=== PATIENT | male | born 1975 | race Caucasian/White ===

== ENCOUNTER → 2020-10-20 | Outpatient (CLI) | payer BC ==
[~2020-10-20] MED LIST: DEXL60CA5 PO; FAMO40TA6 PO; HYDR-34 PO
--- NOTE | 2020-10-20 09:42 | Diagnostic Imaging Report ---
PROCEDURE: US Gallbladder. TECHNIQUE: Multiple real-time grayscale images were obtained over the right upper quadrant in various projections. INDICATION: Right upper quadrant pain. The liver is normal in size at 16 cm. There is generalized increased echogenicity throughout the liver consistent with hepatic steatosis. The portal vein is patent and shows normal direction of flow. The gallbladder is without stones or sludge. No wall thickening or pericholecystic fluid is identified. No biliary ductal dilatation is identified. The pancreas was poorly visualized due to overlying bowel gas. The proximal and mid abdominal aorta are obscured by bowel gas. Distal abdominal aorta is normal in caliber. The right kidney demonstrates normal cortical thickness and echogenicity. No calculi or hydronephrosis is identified. There is no ascites. IMPRESSION: 1. Mild hepatic steatosis. 2. No evidence of cholelithiasis or acute cholecystitis. Dictated by: Dictated on workstation # [id number]
== END ==
LOC: RAD 08:30
PROVIDERS: ATTEND Internal Medicine
DX: K76.0 Fatty (change of) liver, not elsewhere classified (principal)
CPT/HCPCS: 76705

== ENCOUNTER 2020-11-09 05:33 | Outpatient (RCR) | payer BC ==
[~2020-11-09] VITALS: Ht 172.7 cm; Wt 99.5 kg
[~2020-11-09 05:33] MED LIST changes: +PANT40TA52 PO; +ROSU10TA28 PO; +SUCR1TAB PO
== END 2020-11-09 11:09 | disposition home or self-care (01) ==
LOC: PREOP 05:33
PROVIDERS: ATTEND Surgery
DX: Z01.812 Encounter for preprocedural laboratory examination (principal); K21.9 Gastro-esophageal reflux disease without esophagitis; Z20.828 Contact with and (suspected) exposure to other viral communicable diseases
CPT/HCPCS: 87635

== ENCOUNTER 2020-11-14 11:26 | Day surgery (SDC) | payer BC ==
[2020-11-14] VITALS (7 sets, daily range): BP systolic 95–132; BP diastolic 57–93
[~2020-11-14] VITALS: Ht 172 cm; Wt 99.0 kg
[2020-11-14] MEDS ORDERED: LACTATED RINGERS 1,000 ML IV ONE (11:28)
[2020-11-14] MEDS ORDERED: LACTATED RINGERS 1,000 ML IV STA (11:28)
[2020-11-14] MEDS ORDERED: HURRICAINE EXT TUBE (BENZOCAINE) XX PRN (11:30)
[2020-11-14] MEDS ORDERED: MIDAZOLAM 2 MG/2 ML (VERSED) VIAL ONE (12:00)
[2020-11-14] MEDS ORDERED: PROPOFOL INJECTION 50 ML IV ONE (12:00)
[2020-11-14] MEDS ORDERED: HURRICAINE EXT TUBE (BENZOCAINE) ONE (12:07)
--- NOTE | 2020-11-14 12:10 | Progress Note-Pre Operative ---
Pre-Operative Progress Note H&P Reviewed The H&P was reviewed, patient examined and no changes noted. Date Seen by Provider: Nov 14, 2020 Time Seen by Provider: 12:10 Date H&P Reviewed: Nov 14, 2020 Time H&P Reviewed: 12:10 Pre-Operative Diagnosis: gerd TELMA JAMES DO Nov 14, 2020 12:10
--- NOTE | 2020-11-14 12:19 | Progress Note-Post Operative ---
Post-Operative Progess Note Surgeon (s)/Convertible Power Shovel Operator (s) Surgeon TELMA JAMES DO Convertible Power Shovel Operator: na Pre-Operative Diagnosis gerd Post-Operative Diagnosis same Procedure & Operative Findings Date of Procedure 11/14/20 Procedure Performed/Findings egd c biopsies Anesthesia Type per warp tying machine tender Estimated Blood Loss Estimated blood loss (mL): none Specimens/Packing Specimens Removed antrum, ge TELMA JAMES DO Nov 14, 2020 12:19
--- NOTE | 2020-11-14 12:20 | Discharge Inst-Simple/Standard ---
Discharge Inst-Standard Discharge Medications New, Converted or Re-Newed RX: RX on Chart Patient Instructions/Follow Up Plan of Care/Instructions/FU: 2 weeks Marvin Activity as Tolerated: Yes Discharge Diet: Regular Diet TELMA JAMES DO Nov 14, 2020 12:20
--- NOTE | 2020-11-14 13:22 | Anesthesia-General Post-Op ---
MAC Patient Condition Mental Status/LOC: Same as Preop Cardiovascular: Satisfactory Nausea/Vomiting: Absent Respiratory: Satisfactory Pain: Controlled Complications: Absent Post Op Complications Complications None Follow Up Care/Instructions Patient Instructions None needed. Anesthesiology Discharge Order Discharge Order Patient is doing well, no complaints, stable vital signs, no apparent adverse anesthesia problems. No complications reported per nursing. LILIAM BRANDON CRNA Nov 14, 2020 13:22
--- NOTE | 2020-11-14 13:27 | OPERATIVE REPORT ---
DATE OF SERVICE: 11/14/2020 PREOPERATIVE DIAGNOSIS: Gastroesophageal reflux disease. POSTOPERATIVE DIAGNOSIS: Gastroesophageal reflux disease. PROCEDURE: EGD with biopsies. SURGEON: Telma Wong DO ANESTHESIA: Per GAME TECHNICIAN. ESTIMATED BLOOD LOSS: None. COMPLICATIONS: None. INDICATIONS: The patient is a 45-year-old male with GERD symptoms, recommended EGD for further evaluation. He understands risks and benefits of procedure and wished to proceed with procedure. Consent was signed in the chart. DESCRIPTION OF PROCEDURE: The patient was taken to endoscopy suite, placed in left lateral recumbent position. Timeout was performed. Scope was inserted in mouth, down the esophagus, stomach and into the duodenum without difficulty. There were no polyps, masses or ulcerations within the duodenum. Scope was slowly retracted back into the stomach where it was further insufflated. No polyps, masses or ulcerations. Biopsy of the antrum was obtained. Scope was retroflexed noting no other pathology. Scope was returned to its normal position, slowly withdrawn to distal esophagus. Biopsy of the GE junction was obtained. There were no polyps, masses or ulcerations. Some slight erythematous changes. Scope was then continuously retracted back until completely removed. The patient tolerated procedure well without any complications, taken to recovery room in stable condition. RECOMMENDATIONS: The patient will continue on current medications. We will follow up on biopsies in 2 to 3 weeks. Further recommendations pending biopsy results and symptoms. Job ID: [id number] DocumentID: [id number] Dictated Date: 11/14/2020 12:22:08 Mechanical Design Engineer Products Date: 11/14/2020 13:26:38 Dictated By: TELMA WONG DO
== END 2020-11-14 13:09 | disposition home or self-care (01) ==
LOC: ENDO 11:26
PROVIDERS: ATTEND Surgery
DX: K21.00 Gastro-esophageal reflux disease with esophagitis, without bleeding (principal); Z79.899 Other long term (current) drug therapy; Z80.0 Family history of malignant neoplasm of digestive organs; Z83.3 Family history of diabetes mellitus
CPT/HCPCS: 88305

== ENCOUNTER → 2020-11-24 | Outpatient (CLI) | payer BC ==
[~2020-11-24] MED LIST changes: +CATHETER FLUSH 10 ML SYR IV PRN
--- NOTE | 2020-11-24 12:30 | Diagnostic Imaging Report ---
HEPATOBILIARY SCAN DATE: November 24, 2020. INDICATION: 45-year-old male, epigastric pain. COMPARISON: Right upper quadrant abdominal ultrasound October 20, 2020. PROCEDURE: 5.45 mCi of Tc-99m Choletec was administered intravenously and serial anterior planar images over the liver and upper abdomen were obtained. FINDINGS: There is clearance of background activity by the liver indicating a biphasic function. There is radiotracer excretion into the bile duct with prompt filling of the gallbladder. There is extension of radiotracer into small bowel. There is no identified enterogastric reflux. The gallbladder ejection fraction is calculated at 9.6% following administration of Ensure. IMPRESSION: 1. No evidence of acute cholecystitis or complete common bile duct obstruction. 3. Gallbladder ejection fraction of 10% which is below lower limits of normal and can be seen in the setting of biliary dyskinesia and/or chronic cholecystitis. Dictated by: Dictated on workstation # [id number]
== END ==
LOC: CARD 09:35
PROVIDERS: ATTEND Surgery
DX: K81.1 Chronic cholecystitis (principal)
CPT/HCPCS: 78227; A9537

== ENCOUNTER 2020-12-12 05:33 | Outpatient (RCR) | payer BC ==
[~2020-12-12] VITALS: Ht 172.7 cm; Wt 97.9 kg
[~2020-12-12 05:33] MED LIST changes: -CATHETER FLUSH 10 ML SYR IV PRN
[2020-12-14] MEDS ORDERED: ACHD5005 PO (09:05)
[2020-12-14] MEDS ORDERED: DOCU-143 PO (09:05)
== END 2020-12-12 11:08 | disposition home or self-care (01) ==
LOC: PREOP 05:33
PROVIDERS: ATTEND Surgery
DX: Z01.812 Encounter for preprocedural laboratory examination (principal); K82.8 Other specified diseases of gallbladder; Z20.822 Contact with and (suspected) exposure to COVID-19
CPT/HCPCS: 87635

== ENCOUNTER 2020-12-14 06:11 | Day surgery (SDC) | payer BC ==
[~2020-12-14] VITALS: Ht 172 cm; Wt 97.9 kg
[2020-12-14] VITALS (11 sets, daily range): BP systolic 101–160; BP diastolic 77–95
[2020-12-14] MEDS: LACTATED RINGERS 1,000 ML IV PRN ×2 (06:43→09:09)
[2020-12-14] MEDS ORDERED: ceFAZolin 2 GM IV Premixed 50 ML IV ONE (06:45)
[2020-12-14] MEDS ORDERED: ROCURONIUM 10 MG/ML 5 ML SYRINGE IV ONE (06:49)
[2020-12-14] MEDS ORDERED: NEOSTIGMINE 3 MG/3 ML VIAL ONE (06:49)
[2020-12-14] MEDS ORDERED: GLYCOPYRROLATE 0.2 MG/ML (ROBINUL) 2 ML VIAL ONE ×2 (06:49→08:30)
[2020-12-14] MEDS ORDERED: proPOfol 200 MG/20 ML (DIPRIVAN) VIAL IV ONE (06:49)
[2020-12-14] MEDS ORDERED: MIDAZOLAM 2 MG/2 ML (VERSED) VIAL ONE (06:49)
[2020-12-14] MEDS ORDERED: ONDANSETRON 4 MG/2 ML (SDV) Z0FRAN ONE (06:49)
[2020-12-14] MEDS ORDERED: LIDOCAINE PF 2% 5 ML (XYLOCAINE) VIAL ONE (06:49)
[2020-12-14] MEDS ORDERED: SEVOFLURANE (ULTANE) 15 ML INHAL SOLN ONE ×3 (06:49→08:54)
[2020-12-14] MEDS ORDERED: fentaNYL INJECTION 100 MCG/2 ML AMP ONE (06:49)
[2020-12-14 07:00] LABS: BASOPHILS % (AUTO) 1 % (0-10); EOSINOPHILS # (AUTO) 0.1 10^3/uL (0.0-0.3); EOSINOPHILS % (AUTO) 2 % (0-10); HEMATOCRIT 42 % (40-54); LYMPHOCYTES % (AUTO) 37 % (12-44); MEAN CORPUSCULAR HEMOGLOBIN 32 pg (25-34); MEAN CORPUSCULAR HGB CONC 33 g/dL (32-36); MEAN CORPUSCULAR VOLUME 95 fL (80-99); MEAN PLATELET VOLUME 10.9 fL (9.0-12.2); MONOCYTES # (AUTO) 0.5 10^3/uL (0.0-1.0); MONOCYTES % (AUTO) 9 % (0-12); NEUTROPHILS # (AUTO) 2.9 10^3/uL (1.8-7.8); NEUTROPHILS % (AUTO) 52 % (42-75); PLATELET COUNT 218 10^3/uL (130-400); WHITE BLOOD COUNT 5.6 10^3/uL (4.3-11.0)
[2020-12-14] MEDS ORDERED: IOPAMIDOL 61% 30 ML (ISOVUE 300) VIAL ONE (07:20)
[2020-12-14] MEDS ORDERED: LIDOCAINE/EPI 1%-1:100,000 (XYLOCAINE) 50 ML ONE (07:20)
--- NOTE | 2020-12-14 08:01 | Progress Note-Pre Operative ---
Pre-Operative Progress Note H&P Reviewed The H&P was reviewed, patient examined and no changes noted. Date Seen by Provider: Dec 14, 2020 Time Seen by Provider: 07:50 Date H&P Reviewed: Dec 14, 2020 Time H&P Reviewed: 07:50 Pre-Operative Diagnosis: biliary dyskinesia TELMA JAMES DO Dec 14, 2020 08:01
[2020-12-14] MEDS ORDERED: ATROPINE INJ 0.4 MG/ML SDV ONE (08:32)
[2020-12-14] MEDS ORDERED: HYDROmorphone 2 MG/ML VIAL (DILAUDID) ONE (08:54)
--- NOTE | 2020-12-14 09:04 | Progress Note-Post Operative ---
Post-Operative Progess Note Surgeon (s)/Film Processing Shift Supervisor (s) Surgeon TELMA JAMES DO Film Processing Shift Supervisor: Dr. Snow to assist in retraction dissection and closure. Pre-Operative Diagnosis biliary dyskinesia Post-Operative Diagnosis same Procedure & Operative Findings Date of Procedure 12/14/20 Procedure Performed/Findings PROCEDURE: Laparoscopic cholecystectomy with intraoperative cholangiogram. COMPLICATIONS: None. PROCEDURE: The patient was taken to the operating suite and was prepped and draped in sterile fashion. A surgical pause was performed. Just superior to the umbilicus, a 12 mm incision was made. Dissection was taken down to the fascia, which was then scored and grasped with a Bill and the abdomen was then entered. A 0 Vicryl suture was placed in a cjtoaw-wi-xhtto fashion and a Bennett trocar was placed and secured. Pneumoperitoneum was achieved. A 5mm trochar place in the subxyphoid and 2 in the right upper quadrant. The gallbladder was then grasped and elevated. The cystic duct, and cystic artery were then dissected out. Clip was placed on the distal portion of the cystic duct which was then partially transected. An arrow catheter was inserted into the duct. The cholangiogram was then performed. No filing defects and contrast made its way into the duodenum. Catheter removed. Clips were placed on proximal portion of the cystic duct and then the duct was then transected. Clips were placed along the proximal and distal portion of the cystic artery which was then transected. Hook cautery was used to dissect the gallbladder from the gallbladder fossa achieving hemostasis. The gallbladder was placed in an Endobag and removed through the 12 mm trocar site. The abdomen was then reinspected. Copious amounts of irrigation were used to irrigate the abdomen and there were no signs of active bleeding. Hemostasis had been achieved. The 12 mm fascial defect was then closed with 0 Vicryl suture that had been placed in a kibean-qe-vrexo fashion. The abdomen was then desufflated, the trocars were removed. The abdomen was then washed and dried. The skin was then closed using 4-0 Monocryl in a subcuticular fashion. The abdomen was washed and dried and Skin Affix was place over incisions. Patient tolerated the procedure well without any complications and was taken to the recovery room in stable condition. Anesthesia Type general Estimated Blood Loss Estimated blood loss (mL): minimal Specimens/Packing Specimens Removed gallbladder TELMA JAMES DO Dec 14, 2020 09:04
[2020-12-14] MEDS ORDERED: ACHD5005 PO (09:05)
[2020-12-14] MEDS ORDERED: DOCU-143 PO (09:05)
--- NOTE | 2020-12-14 09:05 | Discharge Inst-Simple/Standard ---
Discharge Inst-Standard Discharge Medications New, Converted or Re-Newed RX: RX on Chart Patient Instructions/Follow Up Plan of Care/Instructions/FU: 2-3 weeks Marvin Activity as Tolerated: No Discharge Diet: Regular Diet Other Inst to Patient Follow up Appt: Make appointment for 2-3 weeks. Instructions: No lifting greater than 10 pounds. No strenuous activity. May shower in 24 hours, no tub bath or soaking. Use incentive spirometer at home as directed. No Smoking Skin/Wound Care: You have special glue over incision, it will fall off on it's own. Symptoms to Report: Appetite Changes, Extremity Discoloration, Numbness/Tingling, Swelling Increased, Bleeding Excessive, Eyesight Changes, Pain Increased, Urine Color Change, Constipation(Persistent), Fever over 101 degree F, Pain/Pressure in chest, Urinating Difficulty, Cough Up/Vomit Blood, Heart Beat Irreg/Pounding, Pain/Pressure in jaw, Vaginal Bleeding Increase, Cramps in feet or legs, Lightheadedness, Pain/Pressure in shoulder, Diarrhea(Persistent), Memory Changes Suddenly, Questions/Concerns, Weight gain consecutive days, Dizziness/Fainting, Nausea/Vomiting, Shortness of Breath, Weight gain over 2 pounds. If eyes or skin turn yellow notify physician. If questions or concerns contact your physician Or seek help at emergency department. TELMA JAMES DO Dec 14, 2020 09:05
[2020-12-14] MEDS ORDERED: KETOROLAC 30 MG/ML VIAL ONE (09:15)
--- NOTE | 2020-12-14 09:26 | Diagnostic Imaging Report ---
INDICATION: Cholecystectomy. IMPRESSION: Twelve seconds of fluoroscopy time were utilized during image-assisted cholecystectomy. Dictated by: Dictated on workstation # [id number]
[2020-12-14] MEDS ORDERED: HYDROcodone/APAP 5 MG/325 MG (LORTAB) TAB ONE (11:06)
[2020-12-14] MEDS ORDERED: HYDROcodone/APAP 5 MG/325 MG (LORTAB) TAB PO ONE (11:15)
--- NOTE | 2020-12-14 13:12 | Anesthesia-General Post-Op ---
General Patient Condition Mental Status/LOC: Same as Preop Cardiovascular: Satisfactory Nausea/Vomiting: Absent Respiratory: Satisfactory Pain: Controlled Complications: Absent Post Op Complications Complications None Follow Up Care/Instructions Patient Instructions None needed. Anesthesia/Patient Condition Patient Condition Patient is doing well, no complaints, stable vital signs, no apparent adverse anesthesia problems. No complications reported per nursing. NOHEMY BEARD CRNA Dec 14, 2020 13:12
[2020-12-14] MEDS ORDERED: morphine INJ 10 MG/ML 1ML (SYR OR VIAL) IVP ONE (13:15)
[2020-12-14] MEDS ORDERED: HYDROmorphone 2 MG/ML VIAL (DILAUDID) IV ONE (13:15)
[2020-12-14] MEDS ORDERED: ONDANSETRON 4 MG/2 ML (SDV) Z0FRAN IVP PRN (13:15)
== END 2020-12-14 11:15 ==
LOC: SDC 06:11
PROVIDERS: ATTEND Surgery
DX: K81.1 Chronic cholecystitis (principal); K82.8 Other specified diseases of gallbladder; K21.9 Gastro-esophageal reflux disease without esophagitis; Z79.899 Other long term (current) drug therapy; Z80.0 Family history of malignant neoplasm of digestive organs; Z83.3 Family history of diabetes mellitus
CPT/HCPCS: 36415; 76000; 85025; 87081; 88304

== ENCOUNTER 2021-07-03 05:35 | Outpatient (CLI) | payer BC ==
[~2021-07-03] VITALS: Ht 172.2 cm; Wt 101.1 kg
[~2021-07-03 05:35] MED LIST changes: +ACHD5005 PO; +DOCU-143 PO
[2021-07-03] MEDS ORDERED: [UNRECOGNIZED DRUG - CODE] PO (15:21)
== END 2021-07-04 12:29 | disposition home or self-care (01) ==
LOC: PREOP 05:35
PROVIDERS: ATTEND Surgery
DX: Z01.818 Encounter for other preprocedural examination (principal)

== ENCOUNTER 2021-07-10 08:04 | Day surgery (SDC) | payer BC ==
[2021-07-10] VITALS (8 sets, daily range): BP systolic 113–138; BP diastolic 76–95
[~2021-07-10] VITALS: Ht 172.2 cm; Wt 101.1 kg
[~2021-07-10 08:04] MED LIST changes: +[UNRECOGNIZED DRUG - CODE] PO
[2021-07-10] MEDS ORDERED: LACTATED RINGERS 1,000 ML IV ONE (08:10)
[2021-07-10] MEDS ORDERED: LACTATED RINGERS 1,000 ML IV STA (08:17)
[2021-07-10] MEDS ORDERED: PROPOFOL INJECTION 50 ML IV ONE (09:26)
[2021-07-10] MEDS ORDERED: MIDAZOLAM 2 MG/2 ML (VERSED) VIAL ONE (09:26)
--- NOTE | 2021-07-10 09:50 | Progress Note-Post Operative ---
Post-Operative Progess Note Surgeon (s)/Obstetrician Gynecologist (s) Surgeon TELMA JAMES DO Obstetrician Gynecologist: na Pre-Operative Diagnosis screening colonoscopy, family history colon cancer Post-Operative Diagnosis normal colon Procedure & Operative Findings Date of Procedure 07/10/21 Procedure Performed/Findings colonoscopy Anesthesia Type per automotive parts manager Estimated Blood Loss Estimated blood loss (mL): na Specimens/Packing Specimens Removed na TELMA JAMES DO Jul 10, 2021 09:50
--- NOTE | 2021-07-10 09:51 | Discharge Inst-Simple/Standard ---
Discharge Inst-Standard Patient Instructions/Follow Up Plan of Care/Instructions/FU: 5 year Marvin-repeat colonoscopy. Any issues before that be seen at that time. Activity as Tolerated: Yes Discharge Diet: Regular Diet TELMA JAMES DO Jul 10, 2021 09:51
--- NOTE | 2021-07-10 10:07 | Anesthesia-General Post-Op ---
MAC Patient Condition Mental Status/LOC: Same as Preop Cardiovascular: Satisfactory Nausea/Vomiting: Absent Respiratory: Satisfactory Pain: Controlled Complications: Absent Post Op Complications Complications None Follow Up Care/Instructions Patient Instructions None needed. Anesthesiology Discharge Order Discharge Order Patient is doing well, no complaints, stable vital signs, no apparent adverse anesthesia problems. No complications reported per nursing. ANMOL RAMOS CRNA Jul 10, 2021 10:07
--- NOTE | 2021-07-10 14:48 | OPERATIVE REPORT ---
DATE OF SERVICE: 07/10/2021 PREOPERATIVE DIAGNOSIS: Screening colonoscopy, family history of colon cancer. POSTOPERATIVE DIAGNOSIS: Normal colon. PROCEDURE: Colonoscopy. SURGEON: Telma Wong DO ANESTHESIA: Per [facility]. ESTIMATED BLOOD LOSS: None. COMPLICATIONS: None. INDICATIONS: The patient is a 46-year-old male with family history of colon cancer needing screening. He understands risks and benefits of procedure and wished to proceed with procedure. Consent was signed in the chart. DESCRIPTION OF PROCEDURE: The patient was taken to the endoscopy suite, placed in left lateral recumbent position. Timeout was performed. Digital rectal exam was performed. No palpable polyps, masses or ulcerations. Scope was inserted in the rectum and advanced all the way to cecum with minimal difficulty. Prep was adequate. Scope was then slowly retracted back. No polyps, masses or ulcerations within the cecum, ascending, transverse, descending and sigmoid colon. Once in the rectum, scope was retroflexed noting no other pathology. Scope was returned to its normal position, slowly withdrawn until completely removed. The patient tolerated procedure well without any complications, taken to recovery room in stable condition. RECOMMENDATIONS: The patient will need repeat colonoscopy in 5 years. Any issues before that be seen at that time. Job ID: [id number] DocumentID: [id number] Dictated Date: 07/10/2021 09:54:06 Identification Clerk Date: 07/10/2021 14:48:34 Dictated By: TELMA WONG DO
== END 2021-07-10 10:40 | disposition home or self-care (01) ==
LOC: ENDO 08:04
PROVIDERS: ATTEND Surgery
DX: Z12.11 Encounter for screening for malignant neoplasm of colon (principal); Z80.0 Family history of malignant neoplasm of digestive organs; E78.5 Hyperlipidemia, unspecified; K21.9 Gastro-esophageal reflux disease without esophagitis; Z79.899 Other long term (current) drug therapy

== ENCOUNTER → 2022-09-04 | Outpatient (CLI) | payer BC ==
[2022-09-04 14:17] VITALS: BP 162/104
--- NOTE | 2022-09-05 08:53 | Cardiology Stress Test Report ---
Stress Test Report Date of Procedure/Referring: Date of Procedure: Sep 04, 2022 PCP Giovanna Puckett DO Admitting Physician Admitting Physician: Attending Physician: Rio Guardado MD Baseline Heart Rate: 63 Baseline Blood Pressure: Blood Pressure Systolic: 162 Blood Pressure Diastolic: 104 Baseline EKG: Baseline EKG: NSR Summary/Conclusion: Summary: In summary, the patient started exercising with a baseline heart rate, blood pressure and EKG mentioned above Patient was able to exercise for a total of 9 minutes on Frederick protocol, METs 10.5 Maximum heart rate 148 Maximum blood pressure 227/86 Stress EKG, Minimal nondiagnostic changes Recovery EKG , Return to baseline Conclusion: 1. Good exercise tolerance for a total of 9 minutes on Frederick protocol, 10.5 METs, achieving 86 percent of maximum expected heart rate 2. Minimal nondiagnostic EKG changes with exercise returned to baseline during recovery 3. No arrhythmia was noted Copy Copies To 1: GIOVANNA PUCKETT BASHAR J MD Sep 05, 2022 08:53
== END ==
LOC: CARD 13:37
PROVIDERS: ATTEND Internal Medicine Cardiovascular Disease
DX: I51.7 Cardiomegaly (principal); I25.10 Atherosclerotic heart disease of native coronary artery without angina pectoris; I10 Essential (primary) hypertension
CPT/HCPCS: 93017; C8929; 93306